=== PATIENT | female | born 1995 | race African-American/Black ===

== ENCOUNTER 2023-11-10 13:20 | Emergency (ER) | payer SELFPAY ==
[2023-11-10 13:31] VITALS: BP 126/82; PULSE 104; RESP 18; TEMP 98.6; BMI 31.6
[2023-11-10 14:23] LABS: BASO % 0.2 % (0-2.0); EOS % 0.2 % (0-4.5); HEMATOCRIT 37.9 % (32.4-45.2); HEMOGLOBIN 12.6 GM/dL (10.7-15.3); LYMPH % 12.5 % (8-40); MCH 27.7 pg (25.7-33.7); MCHC 33.2 g/dl (32.0-36.0); MEAN CELL VOLUME 83.5 fl (80-96); MEAN PLT VOLUME 9.4 fl (7.5-11.1); MONO % 5.8 % (3.8-10.2); NEUT % 81.3 % (42.8-82.8); PLATELET COUNT 256 10^3/uL (134-434); RBC 4.54 M/mm3 (3.60-5.2); RDW 13.9 % (11.6-15.6); WHITE BLOOD COUNT 8.5 K/mm3 (4.0-10.0)
[2023-11-10 14:53] LABS: POTASSIUM 3.9 mmol/L (3.5-5.1)
[2023-11-10 14:56] LABS: CALCIUM 9.4 mg/dL (8.5-10.1)
[2023-11-10 14:57] LABS: ALBUMIN 3.8 g/dl (3.4-5.0); BLOOD UREA NITROGEN 8.4 mg/dL (7-18)
[2023-11-10 15:00] LABS: CREATININE 0.7 mg/dL (0.55-1.3)
[2023-11-10 15:01] LABS: BILIRUBIN,TOTAL 0.4 mg/dL (0.2-1); TOT PROT 7.4 g/dl (6.4-8.2)
[2023-11-10 15:49] LABS: HIV INTERPRETATION NEGATIVE (NEGATIVE)
== END 2023-11-10 16:50 | disposition home or self-care (01) ==
LOC: JERFT 13:20
DX: Z20.6 Contact with and (suspected) exposure to human immunodeficiency virus [HIV] (principal)
CPT/HCPCS: 36415; 80053; 84703; 85025; 87389; 99283-25